=== PATIENT | female | born 1980 | race African-American/Black ===

== ENCOUNTER 2018-01-07 14:53 | Emergency (ER) | payer SELFPAY ==
[~2018-01-07] VITALS: Ht 147.3 cm; Wt 81.6 kg
[2018-01-07 15:05] VITALS: BP 139/85
--- NOTE | 2018-01-07 15:09 | PHYS DOC ---
Adult General Chief Complaint Chief Complaint: FOOT INJURY PAIN [facility] HPI Patient is a 37 year old female who presents with pain in her right heel. The patient states that she was struck in the back of her heel by a cart approximately 8 months ago at work. She has been walking on the extremity but states that she still has pain in that area. She has not followed up for evaluation of this pain prior to today. She denies any other injury. Review of Systems Review of Systems Constitutional: Denies fever or chills [] Respiratory: Denies cough or shortness of breath [] Cardiovascular: No additional information not addressed in HPI [] Musculoskeletal: See history of present illness Integument: Denies rash or skin lesions [] Neurologic: Denies headache, focal weakness or sensory changes [] Endocrine: Denies polyuria or polydipsia [] All other systems were reviewed and found to be within normal limits, except as documented in this note. Physical Exam Physical Exam Constitutional: Well developed, well nourished, no acute distress, non-toxic appearance. [] Cardiovascular:Heart rate regular rhythm, no murmur [] Lungs & Thorax: Bilateral breath sounds clear to auscultation [] Abdomen: Bowel sounds normal, soft, no tenderness, no masses, no pulsatile masses. [] Skin: Warm, dry, no erythema, no rash. [] Extremities: tenderness to right heel, no cyanosis, no clubbing, ROM intact, no edema or ecchymosis, no sign of injury to the Achilles. [] Neurologic: Alert and oriented X 3, normal motor function, normal sensory function, no focal deficits noted. [] Psychologic: Affect normal, judgement normal, mood normal. [] Current Patient Data Vital Signs Vital Signs Date Time Temp Pulse Resp B/P (MAP) Pulse Ox O2 Delivery O2 Flow Rate FiO2 01/07/18 15:05 98.1 86 18 139/85 (103) 99 Room Air 98.1 EKG EKG [] Radiology/Procedures Radiology/Procedures [] Course & Med Decision Making Course & Med Decision Making Pertinent Labs and Imaging studies reviewed. (See chart for details) []The patient was placed in a postop shoe and is to follow-up with podiatry. She is in agreement with this plan. Dragon Disclaimer Dragon Disclaimer This electronic medical record was generated, in whole or in part, using a voice recognition dictation system. Departure Departure Impression: Primary Impression: Heel pain Disposition: 01 HOME, SELF-CARE Condition: STABLE Referrals: UNKNOWN PCP NAME (PCP) ARMIDA BARRAGAN DPM Patient Instructions: Foot Contusion Additional Instructions: Wear the postop shoe for comfort. You may take ibuprofen or Tylenol for pain. Follow-up with podiatry for further evaluation of this chronic pain. RADHA ARNOLD APRN Jan 07, 2018 15:09
== END 2018-01-07 15:31 | disposition home or self-care (01) ==
LOC: ER 14:53
DX: M79.671 Pain in right foot (principal)
CPT/HCPCS: 99282

== ENCOUNTER 2020-12-28 09:11 | Emergency (ER) | payer SELFPAY ==
[~2020-12-28] VITALS: Ht 147.3 cm; Wt 180.0 kg
--- NOTE | 2020-12-28 09:20 | PHYS DOC ---
Past Medical History Past Medical History: No Pertinent History Past Surgical History: , Tubal ligation Additional Past Surgical Histo: Lap band Smoking Status: Current Every Day Smoker Alcohol Use: Occasionally Drug Use: Marijuana General Adult EDM: Chief Complaint: ABDOMINAL PAIN HPI: HPI: Jade is a 40 year old female presenting with RLQ abdominal pain. she says this pain has been going on for several years but has gotten worse this past month, and this week became more severe. Today the pain came to the point that it was unbearable and she came into the ED. It is mainly in the RLQ near the inguinal fold but says sometimes it will radiate to her back. The pain is dull and nagging, comes and goes, and she says it feels impossible to get comfortable. She does not take ibuprofen or Tylenol for the pain but says sometimes marijuana will ease it. She says she recently has had more frequent less solid stools but her urination and menstrual cycles have been normal. Review of Systems: Review of Systems: Fourteen body systems of review of systems have been reviewed. See HPI for pertinent positives and negative responses, other valdez all other systems are negative, non-pertinent or non-contributory Heart Score: C/O Chest Pain: No Risk Factors: Risk Factors: DM, Current or recent (<one month) smoker, HTN, HLP, family history of CAD, obesity. Risk Scores: Score 0 - 3: 2.5% MACE over next 6 weeks - Discharge Home Score 4 - 6: 20.3% MACE over next 6 weeks - Admit for Clinical Observation Score 7 - 10: 72.7% MACE over next 6 weeks - Early Invasive Strategies Current Medications: None Physical Exam: PE: Constitutional: Well developed, well nourished, no acute distress, non-toxic appearance. HENT: Normocephalic, atraumatic, bilateral external ears normal, oropharynx moist, no oral exudates, nose normal. Eyes: PERRLA, EOMI, conjunctiva injected bilaterally, no discharge. Neck: Normal range of motion, no tenderness, supple, no stridor. Cardiovascular: Heart rate regular, sinus rhythm, no murmurs rubs or gallops Lungs & Thorax: Bilateral breath sounds clear to auscultation Abdomen: Bowel sounds normal, soft, tenderness present to right lower quadrant with palpation with voluntary guarding present, no rebound, no masses, no pulsatile masses. Nonsurgical abdomen, no peritoneal signs Skin: Warm, dry, no erythema, no rash. Back: No tenderness, no CVA tenderness. Extremities: No tenderness, no cyanosis, no clubbing, ROM intact, no edema. Neurologic: Alert and oriented X 3, grossly normal motor & sensory function, no focal deficits noted. Psychologic: Anxious affect and mood Current Patient Data: Labs: Laboratory Tests Test 12/28/20 09:24 12/28/20 09:25 12/28/20 10:24 Urine Collection Type Void Urine Color Yellow Urine Clarity Clear Urine pH 6.0 Urine Specific [place] 1.025 Urine Protein Negative mg/dL Urine Glucose (UA) Negative mg/dL Urine Ketones (Stick) Negative mg/dL Urine Blood Negative Urine Nitrite Negative Urine Bilirubin Negative Urine Urobilinogen Dipstick 1.0 mg/dL Urine Leukocyte Esterase Negative Urine RBC 0 /HPF Urine WBC Occ /HPF Urine Squamous Epithelial Cells Few /LPF Urine Bacteria Few /HPF Urine Mucus Mod /LPF Urine Opiates Screen Neg Urine Methadone Screen Neg Urine Barbiturates Neg Urine Phencyclidine Screen Neg Urine Amphetamine/Methamphetamine Neg Urine Benzodiazepines Screen Neg Urine Cocaine Screen Neg Urine Cannabinoids Screen Pos Urine Ethyl Alcohol Neg Bedside Urine HCG, Qualitative Hcg negative White Blood Count 5.7 x10^3/uL Red Blood Count 4.90 x10^6/uL Hemoglobin 15.1 g/dL Hematocrit 44.7 % Mean Corpuscular Volume 91 fL Mean Corpuscular Hemoglobin 31 pg Mean Corpuscular Hemoglobin Concent 34 g/dL Red Cell Distribution Width 13.7 % Platelet Count 214 x10^3/uL Neutrophils (%) (Auto) 57 % Lymphocytes (%) (Auto) 33 % Monocytes (%) (Auto) 8 % Eosinophils (%) (Auto) 2 % Basophils (%) (Auto) 1 % Neutrophils # (Auto) 3.2 x10^3/uL Lymphocytes # (Auto) 1.9 x10^3/uL Monocytes # (Auto) 0.4 x10^3/uL Eosinophils # (Auto) 0.1 x10^3/uL Basophils # (Auto) 0.0 x10^3/uL Sodium Level 140 mmol/L Potassium Level 4.1 mmol/L Chloride Level 104 mmol/L Carbon Dioxide Level 27 mmol/L Anion Gap 9 Blood Urea Nitrogen 10 mg/dL Creatinine 0.8 mg/dL Estimated GFR (Cockcroft-Gault) 95.6 BUN/Creatinine Ratio 13 Glucose Level 109 mg/dL Calcium Level 8.8 mg/dL Total Bilirubin 0.2 mg/dL Aspartate Amino Transf (AST/SGOT) 11 U/L Alanine Aminotransferase (ALT/SGPT) 22 U/L Alkaline Phosphatase 58 U/L Total Protein 7.3 g/dL Albumin 3.5 g/dL Albumin/Globulin Ratio 0.9 Current Medications Medications (Trade) Dose Ordered Sig/Aramis Route PRN Reason Start Time Stop Time Status Last Admin Dose Admin Iohexol (Omnipaque 300 Mg/ml) 75 ml 1X ONCE IT 12/28/20 11:15 12/28/20 11:16 DC 12/28/20 11:34 Info (CONTRAST GIVEN -- Rx MONITORING) 1 each PRN DAILY PRN MC SEE COMMENTS 12/28/20 11:15 12/30/20 11:14 Vital Signs: Vital Signs Date Time Temp Pulse Resp B/P (MAP) Pulse Ox O2 Delivery O2 Flow Rate FiO2 12/28/20 09:20 98.1 92 16 181/93 (122) 100 Room Air 98.1 Vital Signs Date Time Temp Pulse Resp B/P (MAP) Pulse Ox O2 Delivery O2 Flow Rate FiO2 12/28/20 11:29 84 16 124/81 (95) 100 Room Air 12/28/20 09:20 98.1 98.1 EKG: EKG: [] Radiology/Procedures: Radiology/Procedures: Exam Date: 12/28/2020 11:[address] ABDOMEN+PELVIS W Indication: Reason: RLQ PAIN / Spl. Instructions: omni 300 75ml / History: . TECHNIQUE: CT examination of the abdomen and pelvis was performed following the administration of oral and nonionic intravenous contrast. One or more of the following dose reduction techniques were utilized: *Automated exposure control (AEC) *Adjustment of mA and/or kV according to patient size *Use of iterative reconstruction technique *CT scan done according to ALARA, or ALARA/IMAGE GENTLY FINDINGS: The visualized lung bases are clear. Status post gastric lap band. The gastric band is in the normal expected position, though the tubing connecting the superficial port to the band is disrupted, with the broken tubing from the band terminating in right lower quadrant of the pelvis. The liver, gallbladder, spleen, pancreas, adrenal glands and kidneys are normal. Urinary bladder is normal in appearance. There is no bowel obstruction or inflammation. The appendix is normal. No significant atherosclerotic calcifications are seen. No lymphadenopathy or ascites is seen. Degenerative changes are seen in the spine. IMPRESSION: No evidence of acute intra-abdominal pathology. Gastric band noted, with disruption of the tubing connecting the port to the band. The broken tubing from the band terminates in the right lower quadrant of the pelvis. This may or may not be of clinical significance, especially if the patient is no longer utilizing the gastric band. No significant inflammatory changes are seen in the right lower quadrant. Appendix normal. Electronically signed by: Varghese Bassett MD (12/28/2020 11:54 AM) [id number] Course & Med Decision Making: Course & Med Decision Making ABCs unremarkable HPI physical exam and comprehensive ER work-up nonconcerning for any emergent or surgical issues With that said I did disclose in full entirety of ER findings. There is concern about foreign object in right lower quadrant and so [facility] general surgery contacted, they advised bariatric surgery consultation I contacted Replaced by [facility] in attempt to contact their bariatric team where patient had her surgery performed in 2008, they state their hospital is at full capacity and could not even offer consultation at this time As such, [facility] bariatric team contacted. Case was reviewed with bariatric surgeon who ultimately felt no emergent surgical indication or need for hospital transfer at this time Pain control and close outpatient follow-up with original bariatric surgeon at [facility] advised. Patient amenable to this. Advised to continue taking Tylenol and Motrin as needed for pain with short-term prescription of narcotic pain medication given after extensive education. Strict return precautions discussed and understood fully by patient and mother at bedside. All questions and concerns addressed prior to departure Dragon Disclaimer: Dragroddy Disclaimer: This electronic medical record was generated, in whole or in part, using a voice recognition dictation system. Departure Departure Impression: Primary Impression: Abdominal pain Disposition: HOME / SELF CARE / HOMELESS Condition: STABLE Referrals: UNKNOWN PCP NAME (PCP) Additional Instructions: You have been evaluated in the Emergency Department today for abdominal pain. Your evaluation was not suggestive of any emergent condition requiring medical intervention at this time. However, some abdominal problems make take more time to appear. Therefore, it is important for you to watch for any new symptoms or worsening of your current condition. As discussed, her CT imaging of your abdomen there was concern about a broken portion of your prior gastric lap band that is present in your right lower quadrant of abdomen. Bariatric surgeons were consulted and disclosed no indication for immediate surgical intervention or hospital transfer With that said, they advised continued supportive care practices, Tylenol, NSAIDs and narcotic pain control as needed, and close outpatient follow-up with [facility] bariatric surgery group who performed your surgery in 2008. Return to the Emergency Department if you experience worsening pain, persistent fevers greater than 100.4, recurrent vomiting, blood in vomit, blood in stool, dark tarry stool, chest pain, difficulty breathing, or any other concerning symptoms. Scripts Hydrocodone Bit/Acetaminophen (HYDROCODONE-APAP 5-325 ) 1 Tab Tablet 1 TAB PO PRN Q6HRS PRN for PAIN, #10 TAB 0 Refills Prov: KIMBERLY WU DO 12/28/20 KIMBERLY WU DO Dec 28, 2020 09:20
[2020-12-28 10:27] LABS: BARBITURATES NEG (NEG); BENZODIAZEPINES NEG (NEG); CANNABINOIDS POS (NEG); COCAINE NEG (NEG); METHADONE NEG (NEG); OPIATES NEG (NEG); PHENCYCLIDINE NEG (NEG)
[2020-12-28 10:31] LABS: AMPHETAMINE/METHAMPHETAMINE NEG (NEG); BILIRUBIN,URINE NEGATIVE (NEG); CLARITY,URINE CLEAR; COLOR,URINE YELLOW; NITRITE,URINE NEGATIVE (NEG); PROTEIN,URINE NEGATIVE (NEG-TRACE)
[2020-12-28 10:39] LABS: BASO % 1 % (0-3); EOS # 0.1 x10^3/uL (0.0-0.7); EOS % 2 % (0-3); HEMATOCRIT 44.7 % (36.0-47.0); HEMOGLOBIN 15.1 g/dL (12.0-15.5); LYMPH # 1.9 x10^3/uL (1.0-4.8); LYMPH % 33 % (24-48); MEAN CORPUSCULAR HEMOGLOBIN 31 pg (25-35); MEAN CORPUSCULAR HGB CONC 34 g/dL (31-37); MEAN CORPUSCULAR VOLUME 91 fL (79-100); MONO # 0.4 x10^3/uL (0.0-1.1); MONO % 8 % (0-9); NEUT # 3.2 x10^3/uL (1.8-7.7); NEUT % 57 % (31-73); PLATELET COUNT 214 x10^3/uL (140-400); RED CELL DISTRIBUTION WIDTH 13.7 % (11.5-14.5); WHITE BLOOD COUNT 5.7 x10^3/uL (4.0-11.0)
[2020-12-28 10:48] LABS: BACTERIA,URINE FEW /HPF (0-FEW); RBC,URINE 0 /HPF (0-2); WBC,URINE OCC /HPF (0-4)
[2020-12-28 10:58] LABS: CALCIUM 8.8 mg/dL (8.5-10.1); CREATININE 0.8 mg/dL (0.6-1.0); GFR 95.6; POTASSIUM 4.1 mmol/L (3.5-5.1)
[2020-12-28 11:02] LABS: ALBUMIN 3.5 g/dL (3.4-5.0); ALBUMIN/GLOBULIN RATIO 0.9 (1.0-1.7); TOTAL BILIRUBIN 0.2 mg/dL (0.2-1.0); TOTAL PROTEIN 7.3 g/dL (6.4-8.2)
[2020-12-28] MEDS ORDERED: CONTRAST GIVEN. MC PRN (11:15)
[2020-12-28] MEDS ORDERED: IOHEXOL 300 MG/ML 100ML VIAL. IT ONE (11:15)
--- NOTE | 2020-12-28 11:57 | RAD ---
Exam Date: 12/28/2020 11:[address] ABDOMEN+PELVIS W Indication: Reason: RLQ PAIN / Spl. Instructions: omni 300 75ml / History: . TECHNIQUE: CT examination of the abdomen and pelvis was performed following the administration of or al and nonionic intravenous contrast. One or more of the following dose reduction techniques were ut ilized: *Automated exposure control (AEC) *Adjustment of mA and/or kV according to patient size *Use of iterative reconstruction technique *CT scan done according to ALARA, or ALARA/IMAGE GENTLY FINDINGS: The visualized lung bases are clear. Status post gastric lap band. The gastric band is in the normal expected position, though the tubing connecting the superficial port to the band is disrupted, with the broken tubing from the band termi nating in right lower quadrant of the pelvis. The liver, gallbladder, spleen, pancreas, adrenal glands and kidneys are normal. Urinary bladder is normal in appearance. There is no bowel obstruction or inflammation. The appendix is normal. No significant atherosclerotic calcifications are seen. No lymphadenopathy or ascites is seen. Degenerative changes are seen in the spine. IMPRESSION: No evidence of acute intra-abdominal pathology. Gastric band noted, with disruption of the tubing connecting the port to the band. The broken tubing from the band terminates in the right lower quadrant of the pelvis. This may or may not be of clini arnol significance, especially if the patient is no longer utilizing the gastric band. No significant inflammatory changes are seen in the right lower quadrant. Appendix normal. Electronically signed by: Varghese Bassett MD (12/28/2020 11:54 AM) [id number]
[2020-12-28] MEDS ORDERED: fentaNYL PF VIAL 100 MCG/2 ML VIAL IVP ONE (12:45)
[2020-12-28 12:59] VITALS: BP 138/86
[2020-12-28] MEDS ORDERED: HYDR-2761 PO (15:14)
== END 2020-12-28 15:30 | disposition home or self-care (01) ==
LOC: ER 09:11
DX: R10.31 Right lower quadrant pain (principal); F17.200 Nicotine dependence, unspecified, uncomplicated; Z98.890 Other specified postprocedural states; Z98.51 Tubal ligation status
CPT/HCPCS: 36415; 74177; 80053; 80307; 81001; 81025; 85025; 96374; 99285; J3010; Q9967